=== PATIENT | female | born 1960 | race Caucasian/White ===

== ENCOUNTER 2017-02-18 03:13 | Emergency (ER) | payer SELFPAY ==
[~2017-02-18] VITALS: Ht 172.7 cm; Wt 51.8 kg
[2017-02-18 03:16] VITALS: BP 117/60; PULSE 70; RESP 16; TEMP 98.6; O2SAT 98
[2017-02-18] MEDS ORDERED: SODIUM CHLOR 0.9% 1000 ML INJ 1,000 ML IV ONE (03:44)
[2017-02-18] MEDS ORDERED: HYDROmorphone HCL PF 1 MG/ML VIAL IM ONE (03:45)
[2017-02-18] MEDS ORDERED: KETOROLAC TROMETHAMINE 30 MG/ML (IVP) VIAL IVP ONE (03:45)
[2017-02-18] MEDS ORDERED: ONDANSETRON HCL 4 MG/2 ML VIAL IM ONE (03:45)
--- NOTE | 2017-02-18 03:47 | PD ---
HPI Chief Complaint: Flank/Kidney Pain Time Seen by Provider: 03:43 Travel History International Travel<30 days: No Contact w/Intl Traveler<30days: No Traveled to known affect area: No History of Present Illness HPI C/O 2 DAYS OF BACK/FLANK PAIN, URINE DISCOLORATION WELL, HAS LONG H/O RECURRENT UTI BUT NOT KIDNEY STONES. DENIES N/V/D/CORTÉS/CP PFSH Past Surgical History Hysterectomy: Yes Social History Tobacco Use: No Allergies-Medications (Allergen,Severity, Reaction): Coded Allergies: Bactrim (Verified Allergy, Severe, VOMITING DIZZINESS, 02/18/17) Sulfa (Verified Allergy, Severe, VOMITING & DIZZINESS, 02/18/17) Reported Meds & Prescriptions Reported Meds & Active Scripts Active Ultram (Tramadol HCl) 50 Mg Tab 50 Mg PO Q4H PRN Ciprofloxacin (Ciprofloxacin HCl) 500 Mg Tab 500 Mg PO BID Review of Systems Except as stated in HPI: all other systems reviewed are Neg Genitourinary: Positive: Urgency, Frequency, Flank Pain Physical Exam Narrative GENERAL: SKIN: Warm and dry. HEAD: Atraumatic. Normocephalic. EYES: Pupils equal and round. No scleral icterus. No injection or drainage. ENT: No nasal bleeding or discharge. Mucous membranes pink and moist. NECK: Trachea midline. No JVD. CARDIOVASCULAR: Regular rate and rhythm. RESPIRATORY: No accessory muscle use. Clear to auscultation. Breath sounds equal bilaterally. GASTROINTESTINAL: Abdomen soft, non-tender, nondistended. Hepatic and splenic margins not palpable. MUSCULOSKELETAL: Extremities without clubbing, cyanosis, or edema. No obvious deformities. NEUROLOGICAL: Awake and alert. No obvious cranial nerve deficits. Motor grossly within normal limits. Five out of 5 muscle strength in the arms and legs. Normal speech. PSYCHIATRIC: Appropriate mood and affect; insight and judgment normal. Data Data Last Documented VS Vital Signs Date Time Temp Pulse Resp B/P Pulse Ox O2 Delivery O2 Flow Rate FiO2 02/18/17 03:16 98.6 70 16 117/60 98 Room Air Orders Complete Blood Count With Diff (02/18/17 03:44) Comprehensive Metabolic Panel (02/18/17 03:44) Urinalysis - C+S If Indicated (02/18/17 03:44) Ct Abd/Pel W/O Iv Contrast (02/18/17 03:44) Ecg Monitoring (02/18/17 03:44) Iv Access Insert/Monitor (02/18/17 03:44) Ketorolac Inj (Toradol Inj) (02/18/17 03:45) Sodium Chlor 0.9% 1000 Ml Inj (Ns 1000 M (02/18/17 03:44) Ondansetron Inj (Zofran Inj) (02/18/17 03:45) Hydromorphone Pf Inj (Dilaudid Pf Inj) (02/18/17 03:45) Urine Culture (02/18/17 03:50) Ceftriaxone Inj (Rocephin Inj) (02/18/17 04:30) Labs Laboratory Tests Test 02/18/17 03:50 Sodium Level 140 MEQ/L Potassium Level 3.4 MEQ/L Chloride Level 103 MEQ/L Carbon Dioxide Level 28.3 MEQ/L Anion Gap 9 MEQ/L Blood Urea Nitrogen 11 MG/DL Creatinine 0.82 MG/DL Estimat Glomerular Filtration 72 ML/MIN Rate Random Glucose 92 MG/DL Calcium Level 9.1 MG/DL Total Bilirubin 0.3 MG/DL Aspartate Amino Transf 62 U/L (AST/SGOT) Alanine Aminotransferase 60 U/L (ALT/SGPT) Alkaline Phosphatase 61 U/L Total Protein 8.1 GM/DL Albumin 3.5 GM/DL White Blood Count 8.1 TH/MM3 Red Blood Count 4.17 MIL/MM3 Hemoglobin 13.4 GM/DL Hematocrit 39.6 % Mean Corpuscular Volume 95.0 FL Mean Corpuscular Hemoglobin 32.1 PG Mean Corpuscular Hemoglobin 33.9 % Concent Red Cell Distribution Width 12.7 % Platelet Count 170 TH/MM3 Mean Platelet Volume 10.0 FL Neutrophils (%) (Auto) 53.4 % Lymphocytes (%) (Auto) 24.9 % Monocytes (%) (Auto) 20.9 % Eosinophils (%) (Auto) 0.4 % Basophils (%) (Auto) 0.4 % Neutrophils # (Auto) 4.3 TH/MM3 Lymphocytes # (Auto) 2.0 TH/MM3 Monocytes # (Auto) 1.7 TH/MM3 Eosinophils # (Auto) 0.0 TH/MM3 Basophils # (Auto) 0.0 TH/MM3 CBC Comment DIFF FINAL Differential Comment Urine Color DARK-BROWN Urine Turbidity CLOUDY Urine pH 6.0 Urine Specific [place] 1.014 Urine Protein 30 mg/dL Urine Glucose (UA) NEG mg/dL Urine Ketones NEG mg/dL Urine Occult Blood SMALL Urine Nitrite POS Urine Bilirubin SMALL Urine Urobilinogen 2.0 MG/DL Urine Leukocyte Esterase LARGE Urine RBC 12 /hpf Urine WBC /hpf Urine WBC Clumps MANY Urine Transitional Epithelial <1 /hpf Cells Urine Renal Epithelial Cells <1 /hpf Urine Bacteria FEW /hpf Microscopic Urinalysis Comment CULTURE INDICATED MDM Medical Decision Making Medical Screen Exam Complete: Yes Emergency Medical Condition: Yes Medical Record Reviewed: Yes Differential Diagnosis KIDNEY STONE V UTI V PYELO Narrative Course CT NEG FOR PYELO NOR KIDNEY STONE....PATIENT WILL BE GIVEN IV ABX THEN D/C HOME Diagnosis Primary Impression: ASCENDING CYSTITIS Patient Instructions: General Instructions, Urinary Tract Infection in Women ( ED) Scripts Tramadol (Ultram)50 Mg Tab50 Mg PO Q4H PRN (PAIN) #28 TAB Prov:Johann Mata MD 02/18/17 Ciprofloxacin 500 Mg [id number] Mg PO BID #14 TAB Prov:Johann Mata MD 02/18/17 Disposition: 01 DISCHARGE HOME Condition: Stable Johann Mata MD Feb 18, 2017 03:47
[2017-02-18 04:00] LABS: AUTOMATED NEUTROPHIL # 4.3 TH/MM3 (1.8-7.7); BASOPHIL % 0.4 % (0.0-2.0); EOSINOPHIL % 0.4 % (0.0-4.0); HEMATOCRIT 39.6 % (35.0-46.0); HEMO FLAGS DIFF FINAL; LYMPH % 24.9 % (9.0-44.0); MEAN CORPUSCULAR HEMOGLOBIN 32.1 PG (27.0-34.0); MEAN CORPUSCULAR HGB CONC 33.9 % (32.0-36.0); MONO % 20.9 % (0.0-8.0); NEUT % 53.4 % (16.0-70.0); PLATELET COUNT 170 TH/MM3 (150-450); RED BLOOD COUNT 4.17 MIL/MM3 (4.00-5.30); RED CELL DISTRIBUTION WIDTH 12.7 % (11.6-17.2); WHITE BLOOD COUNT 8.1 TH/MM3 (4.0-11.0)
[2017-02-18 04:12] LABS: BACTERIA, URINE FEW /hpf; BLOOD, URINE SMALL (NEG); COMMENT (UR) CULTURE INDICATED; CULTURE IF INDICATED CULTURE INDICATED; GLUCOSE,URINE NEG (NEG); KETONE, URINE NEG (NEG); RENAL EPITHELIAL CELLS <1 /hpf; TRANSITIONAL EPI CELLS, URINE <1 /hpf
[2017-02-18 04:13] LABS: NITRITE,URINE POS (NEG); URINE COLOR DARK-BROWN (YELLW/STRAW)
[2017-02-18] MEDS ORDERED: cefTRIAXone INJ 1,000 MG in SODIUM CHLORIDE 0.9% INJ 100 ML IV ONE (04:30)
[2017-02-18 04:31] LABS: ALT (GPT) 60 U/L (10-53); ANION GAP 9 MEQ/L (5-15); AST (GOT) 62 U/L (15-37); BICARBONATE 28.3 MEQ/L (21.0-32.0); BLOOD UREA NITROGEN 11 MG/DL (7-18); CHLORIDE 103 MEQ/L (98-107); GLOMERULAR FILTRATION RATE 72 ML/MIN (>89); POTASSIUM 3.4 MEQ/L (3.5-5.1); SODIUM (NA) 140 MEQ/L (136-145)
[2017-02-18 04:33] LABS: ALKALINE PHOSPHATASE 61 U/L (45-117); TOTAL BILIRUBIN ADULT 0.3 MG/DL (0.2-1.0)
--- NOTE | 2017-02-18 05:23 | RADRPT ---
EXAM DATE/TIME: 02/18/2017 04:31 [facility] COMPARISON: No previous studies available for comparison. INDICATIONS : Bilateral flank pain and hematuria. ORAL CONTRAST: No oral contrast ingested. RADIATION DOSE: 13.28 CTDIvol (mGy) MEDICAL HISTORY : None SURGICAL HISTORY : Hysterectomy. ENCOUNTER: Initial ACUITY: 3 days PAIN SCALE: 8/10 LOCATION: Bilateral flank TECHNIQUE: Volumetric scanning of the abdomen and pelvis was performed. Using automated exposure control and ad justment of the mA and/or kV according to patient size, radiation dose was kept as low as reasonably achievable to obtain optimal diagnostic quality images. DICOM format image data is available electro nically for review and comparison. FINDINGS: CT Abdomen: The liver, spleen, pancreas, kidneys, adrenals are unremarkable. There is no evidence for any appreciable pathological adenopathy, free fluid, or bowel obstruction. There is no evidence for any stones in the kidneys or the course of the ureters on either side. There is no hydronephrosis. T here are a few tiny lung nodules in the left lower lobe the largest almost 3-4 mm in size nonspecific . CT pelvis: There is no evidence for mass, abscess formation, or any significant adenopathy within the pelvis. There is moderate amount of stool throughout the colon. CONCLUSION: Tiny left lung base nodules nonspecific, noncontrast chest CT is suggested in 6 month s as a conservative follow up. Pippa Walton MD on February 18, 2017 at 5:17 Board Certified Radiologist. This report was verified electronically.
[2017-02-18] MEDS ORDERED: CIPR500T2 PO (05:33)
[2017-02-18] MEDS ORDERED: ULTR50TA5 PO (05:33)
== END 2017-02-18 05:57 | disposition home or self-care (01) ==
LOC: NEPC 03:13
DX: N30.80 Other cystitis without hematuria (principal); Z79.899 Other long term (current) drug therapy
CPT/HCPCS: 74176; 80053; 81001; 85025; 87077; 87086; 87186; 96361; 96365; 96372; 96375; 99285; J0696; J1170; J1885; J2405; J7030